=== PATIENT | female | born 1950 | race Caucasian/White ===

== ENCOUNTER 2020-05-13 07:20 | Day surgery (SDC) | payer OTHER, MEDICAID, SELFPAY ==
[~2020-05-13] VITALS: Ht 154.9 cm; Wt 73.9 kg
[~2020-05-13 07:20] MED LIST: ACET-787 PO
[2020-05-13] MEDS ORDERED: LIDOCAINE 2% 100 MG/5 ML UJET TP ONE (09:00)
[2020-05-13] MEDS ORDERED: fentaNYL 0.05 MG/ML VIAL ONE (09:00)
[2020-05-13] MEDS ORDERED: fentaNYL 0.05 MG/ML VIAL IVP ONE (09:30)
== END 2020-05-13 10:20 | disposition home or self-care (01) ==
LOC: MDS 07:20 → MMU 07:21 → MDS 10:20
PROVIDERS: ATTEND Internal Medicine Gastroenterology
DX: K62.5 Hemorrhage of anus and rectum (principal); I10 Essential (primary) hypertension; E66.3 Overweight; Z11.59 Encounter for screening for other viral diseases
CPT/HCPCS: 45378; J3010; U0003